=== PATIENT | male | born 1965 | race Caucasian/White ===

== ENCOUNTER 2023-01-30 09:02 | Emergency (ER) | payer BC ==
[2023-01-30] MEDS ORDERED: Lidocaine 1% 5 ML VIAL INJECT ONE (09:12)
[2023-01-30] MEDS ORDERED: Bacitracin Oint 1 GM U/D Packet TOP ONE (09:12)
== END 2023-01-30 09:27 | disposition home or self-care (01) ==
LOC: DL.ED 09:02
DX: S60.351A Superficial foreign body of right thumb, initial encounter (principal); W45.8XXA Other foreign body or object entering through skin, initial encounter
CPT/HCPCS: 64450; 99282; 99283; A9270-GY; J3490